=== PATIENT | male | born 1985 | race Caucasian/White ===

== ENCOUNTER 2019-12-20 14:02 | Emergency (ER) | payer BC, SELFPAY ==
[2019-12-20 14:10] VITALS: BP 136/51; PULSE 86; RESP 18; TEMP 36.6; O2SAT 98; BMI 27.8
--- NOTE | 2019-12-20 14:25 | HMH.EDUTC ---
[facility] [place] Disposition Clinical Impression: Sinusitis Qualifiers: Sinusitis location: unspecified location Chronicity: acute Recurrence: non-recurrent Qualified Code(s): J01.90 - Acute sinusitis, unspecified Otitis media Qualifiers: Otitis media type: suppurative Chronicity: acute Laterality: bilateral Recurrence: non-recurrent Spontaneous tympanic membrane rupture: without spontaneous rupture Qualified Code(s): H66.003 - Acute suppurative otitis media without spontaneous rupture of ear drum, bilateral Disposition: Home, Self-Care Condition on Discharge: Good Instructions: Sinusitis, DI for Sinusitis Additional Instructions: Drink plenty of fluids. Take tylenol or ibuprofen for pain or fever. Take the medications as directed. Follow up with your regular doctor. GO TO THE ER FOR ANY WORSENING SYMPTOMS FOLLOW THE DIRECTIONS ON THE COVID-19 HAND OUT THAT WE GAVE YOU REGARDING SELF-ISOLATION UNTIL YOU KNOW YOUR COVID-19 RESULTS Prescriptions: Brompheniramine/Pseudoephed/Dm [Bromfed Dm Cough Syrup] 5 ml PO Q6HP PRN #240 syrup PRN Reason: Cough Transmission Status: Received by [id number] Ondansetron [Zofran 4mg ODT] 4 mg PO Q8HP PRN #10 tab.rapdis PRN Reason: Nausea Transmission Status: Received by [id number] Azithromycin [Z-Adrian 250mg Tab*] 250 mg PO UD DOSE PK #6 tab Transmission Status: Received by [id number] Referrals: Yanet Gutierrez PA [Primary Care Provider] - Forms: Work/School Release Time of Disposition: 14:42 Medical Decision Making - Medical Records Medical records reviewed: No: I reviewed the patient's medical records. - Felipe Inquiry Pt receiving controlled substance: No Vital Signs: 12/20/19 14:10 12/20/19 14:46 Temperature 97.9 F 97.9 F Temperature Source Oral Oral Pulse Rate 86 Pulse Rate [Radial] 86 Respiratory Rate 18 18 Blood Pressure 136/51 L Blood Pressure [Right Arm] 136/51 L Blood Pressure Mean [Right Arm] 79 Blood Pressure Source Automatic Cuff Blood Pressure Source [Right Arm] Automatic Cuff Blood Pressure Position Sitting Blood Pressure Position [Right Arm] Sitting 02 Sat by Pulse Oximetry 98 Oxygen Delivery Method Room Air Room Air Orders (Tests/Meds): ORDERS Category Date Time Status Covid-19 Nasal PCR Sendout [facility] Routine Lab 12/20/19 14:09 Received [facility] [place] HPI - General Stated complaint: covid symptoms Time Seen by Provider: 12/20/19 14:25 Mode of Arrival: Ambulatory Source of Information: Patient Limitations: No Limitations Description of Symptoms (Recalled from Triage Doc. by RN): sent from the [facility] for a covid test related to having symptoms. N/V/D, chills, cough, body aches HEENT Symptoms (Recalled from RN notes): Yes Resp Symptoms (Recalled from RN notes): No Skin Symptoms (Recalled from RN notes): No MS Symptoms (Recalled from RN notes): No Functional Status (Recalled from RN notes): wnl - History of Present Illness Provider Complaint: He states that for the past 2 days he has been having nasal congestion, ear pain, body aches, a dry cough and feeling bad. He has had n/v, but no diarrhea. He denies any known contact with someone with COVID-19. - Related Data Home Medications Medication Instructions Recorded Confirmed metoprolol succinate 50 mg 50 mg PO DAILY 01/06/19 05/17/19 tablet,extended release 24 hr sertraline 25 mg tablet 25 mg PO DAILY 01/06/19 05/17/19 Previous Rx's Medication Instructions Recorded amoxicillin 500 mg capsule 500 mg PO Q12H 10 Days #20 cap 05/17/19 Azithromycin [Z-Adrian 250mg Tab*] 250 mg PO UD DOSE PK #6 tab 12/20/19 Brompheniramine/Pseudoephed/Dm 5 ml PO Q6HP PRN #240 syrup 12/20/19 [Bromfed Dm Cough Syrup] Ondansetron [Zofran 4mg ODT] 4 mg PO Q8HP PRN #10 tab.rapdis 12/20/19 Allergies Allergy/AdvReac Type Severity Reaction Status Date / Time No Known Allergies Allergy Verified 05/17/19 10:30 - Worker's Comp Is
[2019-12-20 14:46] VITALS: BP 136/51; PULSE 86; RESP 18; TEMP 36.6; O2SAT 98
[2019-12-21 13:32] LABS: Covid-19 Nasal PCR Sendout Lex Positive
== END 2019-12-20 14:52 | disposition home or self-care (01) ==
PROVIDERS: Emergency Provider Nurse Practitioner Family; PCP Nurse Practitioner Family
DX: U07.1 COVID-19 (principal); H66.003 Acute suppurative otitis media without spontaneous rupture of ear drum, bilateral; J01.90 Acute sinusitis, unspecified; F41.8 Other specified anxiety disorders; I48.20 Chronic atrial fibrillation, unspecified; Z79.899 Other long term (current) drug therapy
CPT/HCPCS: 99201; U0004

== ENCOUNTER 2022-01-30 09:57 | Emergency (ER) | payer BC, SELFPAY ==
[2022-01-30 11:25] VITALS: BP 131/86; PULSE 89; RESP 18; TEMP 36.6; O2SAT 98; BMI 33.4
--- NOTE | 2022-01-30 11:36 | EXP.UTC ---
Discharge Plan Disposition Patient Disposition: Home, Self-Care Condition: Good Prescriptions Prescriptions: New benzonatate 100 mg capsule 100 mg PO TID PRN (Reason: cough) Qty: 30 0RF methylprednisolone [Medrol (Adrian)] 4 mg tablets,dose pack See Rx Instructions .Route .COMPLEX 6 Days Qty: 21 0RF Rx Instructions: taper pack; amoxicillin-pot clavulanate 875-125 mg Tablet 1 tab PO Q12H Qty: 20 0RF No Action metoprolol succinate 50 mg tablet extended release 24 hr 50 mg PO DAILY Referrals Follow up/Referrals: Provider,Referral, MD [Primary Care Provider] - See instructions Activity Restrictions/Add. Instructions Additional Instructions/Restrictions: *Monitor Temp, Over the counter Motrin or Tylenol as directed/as needed Tylenol every 4 hours and Motrin every 6 hours (as long as your family doctor has told you that you can take it) for fever or pain. and straight to ER if unable to lower temp less than 101.0 after medication given *Warm salt water gargles may help to soothe the throat *Throat Lozenges? *Warm fluids like tea with honey may help to soothe the throat? *Sleep elevated *Humidifier/Vaporizer *Flonase 2 sprays in each nostril daily but be aware that it may take 2-3 days before you notice improvement *Bromfed may cause drowsiness. Know how it effects you (your child) before driving, caring for small child, or sending your child to school. Not other antihistamines/allergy medications while taking bromfed Your throat swab was sent for culture. Those results are typically sent to your primary care. Be sure to follow up in 2-3 days with your family doctor/primary care physician if no improvement so they can review those result and treat if necessary. If you don?t have a primary care doctor, I recommend you get one but in the mean time, you will have to return to a walk in clinic Follow up IMMEDIATELY for new or worsening symptoms or no Noticeable improvement over the next 48-72 hours. 911 for difficulty breathing or swallowing Clinical Impressions Clinical Impression: Otitis media Stand Alone Forms Stand Alone Forms: Work/School Release Instructions Patient Instructions: DI for Sinusitis, Middle Ear Infection Discharge ED Provider: Rosa Kmainski [facility] HPI General Stated complaint: wheezing, cough, congestion, sore throat Time Seen by Provider: 01/30/22 11:36 History of Present Illness Provider Complaint: Patient states that he thinks he may have an URI States that he has been having sinus pain and pressure, drainage in the back of his throat, cough, pain and pressure in both ears and headache States that today he was still feeling ill so he came in to get checked out Related Data Home Medications Medication Instructions Recorded Confirmed metoprolol succinate 50 mg 50 mg PO DAILY AFIB 01/06/19 01/30/22 tablet,extended release 24 hr Previous Rx's Medication Instructions Recorded amoxicillin 875 mg-potassium 1 tab PO Q12H #20 tabs 01/30/22 clavulanate 125 mg tablet benzonatate 100 mg capsule 100 mg PO TID PRN cough #30 caps 01/30/22 methylprednisolone 4 mg tablets in See Rx Instructions .Route 01/30/22 a dose pack (Medrol (Adrian)) .COMPLEX 6 days #21 tabs Allergies Allergy/AdvReac Type Severity Reaction Status Date / Time No Known Allergies Allergy Verified 05/17/19 10:30 [facility] Medical History (Updated 01/30/22 @ 11:43 by Rosa Kaminski, ENGINEERING ANALYST) Atrial fibrillation History of deviated nasal septum Surgical History (Updated 01/30/22 @ 11:40 by No Morales RN) History of carpal tunnel surgery Social History Smoking Status: Never smoker alcohol intake: never substance use type: denies use current occupational status: employed Travel in the last 8 weeks: None ROS Obtained: Yes All systems reviewed & no additional complaints except as documented and Yes Systems reviewed as appropriate & no add
[2022-01-30 11:44] VITALS: BP 131/86; PULSE 89; RESP 18; TEMP 36.6; O2SAT 98
== END 2022-01-30 11:47 | disposition home or self-care (01) ==
PROVIDERS: Emergency Provider Nurse Practitioner
DX: H66.92 Otitis media, unspecified, left ear (principal)
CPT/HCPCS: 99212; G0463

== ENCOUNTER 2022-02-13 10:15 | Emergency (ER) | payer BC, SELFPAY ==
--- NOTE | 2022-02-13 10:32 | EXP.UTC ---
Discharge Plan Disposition Patient Disposition: Home, Self-Care Condition: Good Prescriptions Prescriptions: New azithromycin [Zithromax] 250 mg tablet 250 mg PO UD DOSE PK Qty: 6 0RF Rx Instructions: Take two (2) tablets today, then one (1) tablet days #2 thru #5 benzonatate [benzonatate] 100 mg capsule 100 mg PO TIDP PRN (Reason: Cough) Qty: 30 0RF oseltamivir [Tamiflu] 75 mg capsule 75 mg PO BID Qty: 10 0RF ondansetron 4 mg Tablet,Disintegrating 4 mg PO Q8H PRN (Reason: Nausea) Qty: 12 0RF No Action metoprolol succinate 50 mg tablet extended release 24 hr 50 mg PO DAILY benzonatate 100 mg capsule 100 mg PO TID PRN (Reason: cough) Qty: 30 0RF methylprednisolone [Medrol (Adrian)] 4 mg tablets,dose pack See Rx Instructions .Route .COMPLEX 6 Days Qty: 21 0RF Rx Instructions: taper pack; amoxicillin 875 mg tablet 875 mg PO Q12H Qty: 20 0RF Referrals Follow up/Referrals: Provider,Referral, MD [Primary Care Provider] - See instructions Activity Restrictions/Add. Instructions Additional Instructions/Restrictions: Drink plenty of fluids. Take tylenol or ibuprofen for pain or fever. Take the medications as directed. Follow up with your regular doctor. GO TO THE ER FOR ANY WORSENING SYMPTOMS Clinical Impressions Clinical Impression: Influenza, Pharyngitis Stand Alone Forms Stand Alone Forms: Work/School Release Instructions Patient Instructions: DI for Influenza -- Adult, Oseltamivir Discharge ED Provider: Rosendo Olsen [facility] General Stated complaint: fever, sore throat, congestion, chills, body aches Time Seen by Provider: 02/13/22 10:32 History of Present Illness Provider Complaint: He states that for the past 1 day he has had fever, chills, diarrhea, body aches, sore throat and malaise. Related Data Home Medications Medication Instructions Recorded Confirmed metoprolol succinate 50 mg 50 mg PO DAILY AFIB 01/06/19 01/30/22 tablet,extended release 24 hr Previous Rx's Medication Instructions Recorded amoxicillin 875 mg tablet 875 mg PO Q12H #20 tabs 01/30/22 benzonatate 100 mg capsule 100 mg PO TID PRN cough #30 caps 01/30/22 methylprednisolone 4 mg tablets in See Rx Instructions .Route 01/30/22 a dose pack (Medrol (Adrian)) .COMPLEX 6 days #21 tabs azithromycin 250 mg tablet 250 mg PO UD DOSE PK #6 tabs 02/13/22 (Zithromax) benzonatate 100 mg capsule 100 mg PO TIDP PRN Cough #30 caps 02/13/22 ondansetron 4 mg disintegrating 4 mg PO Q8H PRN Nausea #12 tabs 02/13/22 tablet oseltamivir 75 mg capsule (Tamiflu) 75 mg PO BID #10 caps 02/13/22 Allergies Allergy/AdvReac Type Severity Reaction Status Date / Time No Known Allergies Allergy Verified 02/13/22 10:50 [facility] Disclaimer: The information contained in this section may have been updated after the patient was seen, as this information can be updated by other users. Medical History Atrial fibrillation History of deviated nasal septum Surgical History History of carpal tunnel surgery Social History Smoking Status: Never smoker alcohol intake: never substance use type: denies use current occupational status: employed Travel in the last 8 weeks: None ROS Obtained: Yes All systems reviewed & no additional complaints except as documented Constitutional Constitutional: Reports chills and Reports fever(s) Eyes Eyes: Denies eye discharge ENT Ears, Nose, Mouth, and Throat: Reports as per HPI Cardiovascular Cardiovascular: Denies chest pain Respiratory Respiratory: Denies chest congestion and Reports cough Gastrointestinal Gastrointestingal: Reports nausea; Denies abdominal pain, constipation, cramping, diarrhea or vomiting Musculoskeletal Musculoskeletal: Denies arthralgias Integumentar
[2022-02-13 10:47] VITALS: BP 133/80; PULSE 73; RESP 18; TEMP 37.2; O2SAT 95; BMI 29.2
[2022-02-13 10:51] LABS: UTC Strep Screen (Rapid) Negative (Negative)
[2022-02-13 10:54] LABS: Coronavirus 19, PCR Not Detected (NotDetected); Influenza A, PCR Not Detected (NotDetected); Influenza B, PCR Not Detected (NotDetected)
[2022-02-13 11:47] VITALS: BP 133/80; PULSE 73; RESP 18; TEMP 37.2
== END 2022-02-13 11:52 | disposition home or self-care (01) ==
PROVIDERS: Emergency Provider Nurse Practitioner Family
DX: J02.9 Acute pharyngitis, unspecified (principal); R50.9 Fever, unspecified; R52 Pain, unspecified
CPT/HCPCS: 87880; 99212; C9803; G0463; U0003; U0005

== ENCOUNTER 2022-05-12 13:03 | Emergency (ER) | payer BC, SELFPAY ==
[2022-05-12 15:00] VITALS: BP 133/92; PULSE 79; RESP 20; TEMP 36.6; O2SAT 99; BMI 29.8
--- NOTE | 2022-05-12 15:09 | EXP.UTC ---
Discharge Plan Disposition Patient Disposition: Home, Self-Care Condition: Good Prescriptions Prescriptions: New methylprednisolone 4 mg Tablets,Dose Pack 4 mg PO DIRECTED Qty: 21 0RF amoxicillin-pot clavulanate 875-125 mg Tablet 1 tab PO Q12H Qty: 20 0RF No Action metoprolol succinate 50 mg tablet extended release 24 hr 50 mg PO DAILY Referrals Follow up/Referrals: Provider,Referral, MD [Primary Care Provider] - See instructions Activity Restrictions/Add. Instructions Additional Instructions/Restrictions: Drink plenty of fluids. Take tylenol or ibuprofen for pain or fever. Take the medications as directed. Follow up with your regular doctor. GO TO THE ER FOR ANY WORSENING SYMPTOMS Clinical Impressions Clinical Impression: Pharyngitis Stand Alone Forms Stand Alone Forms: Work/School Release Instructions Patient Instructions: DI for Pharyngitis/Tonsillopharyngitis -- Adult Discharge ED Provider[place] [facility] [place] General Stated complaint: sore throat Time Seen by Provider: 05/12/22 15:08 History of Present Illness Provider Complaint: He c/o sore throat, chills, and malaise for the past 2 days Related Data Home Medications Medication Instructions Recorded Confirmed metoprolol succinate 50 mg 50 mg PO DAILY AFIB 01/06/19 05/12/22 tablet,extended release 24 hr Previous Rx's Medication Instructions Recorded amoxicillin 875 mg-potassium 1 tab PO Q12H #20 tabs 05/12/22 clavulanate 125 mg tablet methylprednisolone 4 mg tablets in 4 mg PO DIRECTED #21 tabs 05/12/22 a dose pack Allergies Allergy/AdvReac Type Severity Reaction Status Date / Time No Known Allergies Allergy Verified 05/12/22 15:24 [facility] Disclaimer: The information contained in this section may have been updated after the patient was seen, as this information can be updated by other users. Medical History Atrial fibrillation History of deviated nasal septum Surgical History History of carpal tunnel surgery Social History Smoking Status: Never smoker alcohol intake: never substance use type: denies use current occupational status: employed Travel in the last 8 weeks: None ROS Obtained: Yes All systems reviewed & no additional complaints except as documented Constitutional Constitutional: Reports chills and Reports fever(s) Eyes Eyes: Denies eye discharge ENT Ears, Nose, Mouth, and Throat: Reports as per HPI Cardiovascular Cardiovascular: Denies chest pain Respiratory Respiratory: Denies chest congestion and Reports cough Gastrointestinal Gastrointestingal: Reports nausea; Denies abdominal pain, constipation, cramping, diarrhea or vomiting Musculoskeletal Musculoskeletal: Denies arthralgias Integumentary/Breasts Skin/Breast: Denies rash Neurologic Neurologic: Denies paresthesias Physical Exam General General appearance: alert and in no apparent distress Head Head exam: atraumatic, normocephalic and normal inspection Eye Eye exam: Present normal appearance, PERRL and EOMI ENT ENT exam: Present mucous membranes moist and normal external ear exam Expanded ENT Exam TM/Canal exam: Bilateral TM: erythema and bulging Nose exam: Absent sinus tenderness Mouth exam: Present normal external inspection; Absent drooling Teeth exam: Present normal inspection Throat exam: Present tonsillar erythema, tonsillomegaly and tonsillar exudate Neck Neck exam: Present normal inspection, full ROM and trachea midline; Absent tenderness, meningismus or lymphadenopathy Chest Chest inspection: Present normal inspection and symmetric chest wall rise; Absent tenderness Respiratory Respiratory exam: Present normal lung sounds bilaterally; Absent respiratory distress, wheezes or stridor Cardiovascular Cardiovascular e
[2022-05-12 15:16] LABS: UTC Strep Screen (Rapid) Negative (Negative)
[2022-05-12 15:49] VITALS: BP 133/92; PULSE 79; RESP 20; TEMP 36.6; O2SAT 99
== END 2022-05-12 15:48 | disposition home or self-care (01) ==
PROVIDERS: Emergency Provider Nurse Practitioner Family
DX: J02.9 Acute pharyngitis, unspecified (principal); R53.81 Other malaise
CPT/HCPCS: 87880; 99212; 99214; G0463

== ENCOUNTER 2022-08-13 17:49 | Emergency (ER) | payer BC, SELFPAY ==
[2022-08-13 17:50] VITALS: BP 128/79; PULSE 93; RESP 18; TEMP 37; O2SAT 96; BMI 30.2
[2022-08-13 18:13] LABS: UTC Strep Screen (Rapid) Negative (Negative)
--- NOTE | 2022-08-13 18:14 | EXP.UTC ---
Discharge Plan Disposition Patient Disposition: Home, Self-Care Condition: Good Prescriptions Prescriptions: New methylprednisolone 4 mg Tablets,Dose Pack 4 mg PO DIRECTED Qty: 21 0RF amoxicillin-pot clavulanate 875-125 mg Tablet 1 tab PO Q12H Qty: 20 0RF meclizine 25 mg tablet 25 mg PO Q6HP PRN (Reason: dizziness) Qty: 30 0RF No Action metoprolol succinate 50 mg tablet extended release 24 hr 50 mg PO DAILY methylprednisolone 4 mg Tablets,Dose Pack 4 mg PO DIRECTED Qty: 21 0RF amoxicillin-pot clavulanate 875-125 mg Tablet 1 tab PO Q12H Qty: 20 0RF Referrals Follow up/Referrals: Provider,Referral, MD [Primary Care Provider] - See instructions Activity Restrictions/Add. Instructions Additional Instructions/Restrictions: Drink plenty of fluids. Take tylenol or ibuprofen for pain or fever. Take the medications as directed. Follow up with your regular doctor. GO TO THE ER FOR ANY WORSENING SYMPTOMS The meclizine (antivert) is for your dizziness. It will make you drowsy, so don't drive or operate heavy machinery after taking it. Clinical Impressions Clinical Impression: Otitis media, Pharyngitis Stand Alone Forms Stand Alone Forms: Work/School Release Instructions Patient Instructions: Middle Ear Infection, DI for Vertigo Discharge ED Provider: Rosendo Olsen [facility] General Stated complaint: dizzy Mode of Arrival: Ambulatory Source of Information: Patient Limitations: No Limitations Time Seen by Provider: 08/13/22 18:11 Description of Symptoms (Recalled from Triage Doc. by RN): Patient reports a sore throat, chills, ear ache, headache and dizziness since yesterday. HEENT Symptoms (Recalled from RN notes): Yes Resp Symptoms (Recalled from RN notes): No Skin Symptoms (Recalled from RN notes): No MS Symptoms (Recalled from RN notes): No Functional Status (Recalled from RN notes): wnl History of Present Illness Provider Complaint: He reports that since yesterday he has had left ear pain, dizziness, sore throat and he has felt bad. Related Data Home Medications Medication Instructions Recorded Confirmed metoprolol succinate 50 mg 50 mg PO DAILY AFIB 01/06/19 05/12/22 tablet,extended release 24 hr Previous Rx's Medication Instructions Recorded amoxicillin 875 mg-potassium 1 tab PO Q12H #20 tabs 05/12/22 clavulanate 125 mg tablet methylprednisolone 4 mg tablets in 4 mg PO DIRECTED #21 tabs 05/12/22 a dose pack amoxicillin 875 mg-potassium 1 tab PO Q12H #20 tabs 08/13/22 clavulanate 125 mg tablet meclizine 25 mg tablet 25 mg PO Q6HP PRN dizziness #30 08/13/22 tabs methylprednisolone 4 mg tablets in 4 mg PO DIRECTED #21 tabs 08/13/22 a dose pack Allergies Allergy/AdvReac Type Severity Reaction Status Date / Time No Known Allergies Allergy Verified 05/12/22 15:24 Worker's Comp Is this a Worker's Comp case?: No [facility] Disclaimer: The information contained in this section may have been updated after the patient was seen, as this information can be updated by other users. Medical History Atrial fibrillation History of deviated nasal septum Surgical History History of carpal tunnel surgery Social History Smoking Status: Never smoker alcohol intake: never substance use type: denies use current occupational status: employed Travel in the last 8 weeks: None ROS Obtained: Yes All systems reviewed & no additional complaints except as documented Constitutional Constitutional: Reports chills and Reports fever(s) Eyes Eyes: Denies eye discharge ENT Ears, Nose, Mouth, and Throat: Reports as per HPI Cardiovascular Cardiovascular: Denies chest pain Respiratory Respiratory: Denies chest congestion and Reports cough Gastrointestinal Gastrointes
[2022-08-13 18:20] VITALS: BP 128/79; PULSE 93; RESP 18; TEMP 37; O2SAT 96
== END 2022-08-13 18:21 | disposition home or self-care (01) ==
PROVIDERS: Emergency Provider Nurse Practitioner Family
DX: H66.93 Otitis media, unspecified, bilateral (principal); J02.9 Acute pharyngitis, unspecified; R42 Dizziness and giddiness
CPT/HCPCS: 87880; 99212; 99214; G0463

== ENCOUNTER 2024-02-11 15:04 | Outpatient (CLI) | payer BC, SELFPAY | END 2024-02-11 23:59 | disposition home or self-care (01) | LOC: LAB.DROPOF 02-12 08:54 | PROVIDERS: PCP Nurse Practitioner Family; Visit Provider Nurse Practitioner Family | DX: J02.9 Acute pharyngitis, unspecified (principal) | CPT/HCPCS: 87070 ==

== ENCOUNTER 2024-02-16 23:01 | Emergency (ER) | payer BC, SELFPAY ==
[2024-02-16 23:02] VITALS: BP 134/89; PULSE 94; RESP 18; TEMP 36.7; O2SAT 96; BMI 29.8
--- NOTE | 2024-02-16 23:18 | HMH.EDGENADL ---
Discharge Plan Disposition Patient Disposition: Home, Self-Care Prescriptions Prescriptions: No Action metoprolol succinate 50 mg tablet extended release 24 hr 50 mg PO DAILY promethazine-DM 6.25-15 mg/5 mL syrup 5 ml PO Q4-6H PRN (Reason: cough) Qty: 118 0RF Referrals Follow up/Referrals: Provider,Referral, MD [Primary Care Provider] - See instructions Activity Restrictions/Add. Instructions Additional Instructions/Restrictions: Please use erythromycin ointment as discussed 4 times per day as discussed. Please call to follow-up with an eye doctor soon as possible. Please return to the ER if you develop any new or worsening symptoms or become concerned for your health. Clinical Impressions Clinical Impression: Corneal abrasion, Acid chemical burn of left eye Stand Alone Forms Stand Alone Forms: Work/School Release Print Language Print Language: Brazilian Discharge ED Provider: Matthew Ramos General Adult HPI General Chief complaint: Eye Problems Stated complaint: eye injury Time Seen by Provider: 02/16/24 23:05 History of Present Illness HPI narrative: 38-year-old male without significant past medical history presents for possible acid exposure to the left eye. 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 He immediately started washing it out at home. He reported felt a little bit irritated after washing it out. He then proceeded to the ER. Denies any injury to the right eye. Does not wear contacts. Related Data Home Medications ?Medication ?Instructions ?Recorded ?Confirmed metoprolol succinate 50 mg 50 mg PO DAILY AFIB 01/06/19 02/11/24 tablet,extended release 24 hr Previous Rx's ?Medication ?Instructions ?Recorded promethazine-DM 6.25 mg-15 mg/5 mL 5 ml PO Q4-6H PRN cough #118 mL 02/11/24 oral syrup Allergies Allergy/AdvReac Type Severity Reaction Status Date / Time No Known Allergies Allergy Verified 02/11/24 14:56 [facility] Disclaimer: The information contained in this section may have been updated after the patient was seen, as this information can be updated by other users. Medical History Sinusitis Otitis media Influenza Pharyngitis History of deviated nasal septum Atrial fibrillation Surgical History History of carpal tunnel surgery Family History Other No significant family history Social History Smoking Status: Never smoker alcohol intake: never substance use type: denies use current occupational status: employed Travel in the last 8 weeks: None Other Medical History Have you received the Pneumonia Vaccine: No ROS Obtained: Yes All systems reviewed & no additional complaints except as documented Physical Exam General General appearance: alert and in no apparent distress Head Head exam: atraumatic and normocephalic Eye Eye exam: Present PERRL, EOMI and conjunctival injection ENT ENT exam: Present normal oropharynx and normal external ear exam Neck Neck exam: Present normal inspection and full ROM Chest Chest inspection: Present normal inspection and symmetric chest wall rise; Absent tenderness Respiratory Respiratory exam: Present normal lung sounds bilaterally; Absent respiratory distress Cardiovascular Cardiovascular exam: Present regular rate and normal rhythm Abdominal Exam Abdominal exam: Present soft; Absent distention, tenderness or guarding Extremities Exam Extremities exam: Present normal inspection; Absent edema or joint swelling Back Exam Back exam: Present normal inspection; Absent tenderness Neurological Exam Neurological exam: Present alert and oriented X3; Absent motor sensory deficit Psychiatric Psychiatric exam: Present normal affect and normal mood Skin Skin exam: Present warm, dry and normal color Lymphatic Lymphatic Findings: no adenopathy Medical Decision Making Medical Records Medical records reviewed: Yes I reviewed the patient's medical records. Screening: Per USPSTF and CDC recommendations, given the prevalence of disease in our region, it is our hospital?s policy to screen for HIV and viral Hepatitis for all patients aged 18 and over and those with ongoing risk factors. Felipe Inquiry Pt receiving controlled substance: No Felipe was queried for this patient: No Vital Signs: 02/16/24 23:02 02/16/24 23:44 Temperature 98.1 F 98.1 F Temperature Source Oral Oral Pulse Rate 94 H Pulse Rate [Right] 94 H Respiratory Rate 18 18 Blood Pressure 134/89 Blood Pressure [Right Arm] 134/89 Blood Pressure Mean [Right Arm] 104 02 Sat by Pulse Oximetry 96 Oxygen Delivery Method Room Air Lab Data Lab results reviewed: Yes I reviewed the patient's lab results. Orders (Tests/Meds): ED MEDICATIONS Discontinued Medications Generic Name Dose Route Start Last Admin Trade Name Ramona PRN Reason Stop Dose Admin Erythromycin 0.5 gm 02/16/24 23:40 02/16/24 23:42 Erythromycin Base 1 Gm Oint...G. 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 He washed out immediately at home and then came to the ER. Differential diagnosis includes but limited to acid exposure, corneal ulcer, corneal abrasion. We immediately began irrigating the eye with our eyewash station. Patient had 25 minutes of irrigation. After irrigation patient reports that his affected eye is more blurry than before irrigation. pH test shows normal and equal pH bilaterally. Patient was given tetracaine, on fluorescein staining there is a small area of fluorescein uptake at the 11 o'clock position overlying the lateral aspect of the iris and some of the sclera. Patient was given erythromycin ointment and instructed on its use and to follow-up with an eye doctor soon as possible. Patient was discharged in stable condition with return precautions. Procedures Risk/Benefits of Procedure(s) Were Explained: Yes Critical Care Critical Care Time Critical Care Time: No
[2024-02-16] MEDS: ERYTHROMYCIN BASE 1 GM OINT...G. 0.5 GM OP (23:42)
[2024-02-16] MEDS: FLUORESCEIN SODIUM 1MG STRIP 1 MG OP (23:43)
[2024-02-16] MEDS: TETRACAINE 0.5% OPTH SOL 15ML OP (23:43)
[2024-02-16 23:44] VITALS: BP 134/89; PULSE 94; RESP 18; TEMP 36.7; O2SAT 96
== END 2024-02-16 23:54 | disposition home or self-care (01) ==
PROVIDERS: Emergency Provider Emergency Medicine
DX: S05.02XA Injury of conjunctiva and corneal abrasion without foreign body, left eye, initial encounter (principal); T54.2X1A Toxic effect of corrosive acids and acid-like substances, accidental (unintentional), initial encounter; H57.12 Ocular pain, left eye
CPT/HCPCS: 99283

== ENCOUNTER 2025-01-03 12:03 | Outpatient (CLI) | payer BC, SELFPAY ==
[2025-01-03 15:35] LABS: Coronavirus 19, PCR Not Detected (NotDetected); Influenza A, PCR Not Detected (NotDetected); Influenza B, PCR Not Detected (NotDetected)
--- OUTSIDE RECORDS SUMMARY | 2025-01-05 20:51 | XMS_ITS | Clinical Summary ---
Author Organization [facility] Address [address] [facility] [address] [place] [address] Care Team Providers Care High Wire Artist Name Role Phone Unavailable Primary Care Provider Unavailabl e Social History Tobacco Use Types Packs/Day Years Used Date Smoking Tobacco: Never Assessed Sex and Gender Information Value Date Recorded Sex Assigned at Not on file Legal Sex Male 4:58 PM EST Gender Identity Not on file Sexual Orientation Not on file Plan of Treatment Health Maintenance Due Date Last Done Comments HIV Screening 1987 Hepatitis C Screening 1987 Lipid Panel 1987 MMR Vaccines (1 of 1 - Stand monroe series) 08/04/1988 Varicella Vaccines (1 of 2 - 13+ 2-dose series) 08/04/2000 Hepatitis B Screening 08/04/2005 DTaP/Tdap/Td Vaccines (1 - Tdap) 08/04/2006 Hepatitis B Vaccines (1 of 3 - 19+ 3-dose series) 08/04/2006 HPV Vaccines (1 - 3-dose SCD M series) 08/04/2014 Depression Risk Screening 03/03/2024 SDOH Screening 03/03/2024 COVID-19 Vaccine (1 - 2024-2 6 season) 2024 Influenza Vaccine (#1) 2024 Zoster Vaccines (1 of 2) 08/04/2037 HIB Vaccines Aged Out No longer eligi ble based on patient's age to complete this topic Hepatitis A Vaccines Aged Out No long er eligible based on patient's age to complete this topic IPV Vaccines Aged Out No longer eligi ble based on patient's age to complete this topic Meningococcal B Vaccine Aged Out No l onger eligible based on patient's age to complete this topic Meningococcal Vaccine Aged Out No treasure deirdre eligible based on patient's age to complete this topic Pneumococcal Vaccine Aged Out No long er eligible based on patient's age to complete this topic Rotavirus Vaccines Aged Out No longer eligible based on patient's age to complete this topic Insurance JUSTIN
--- OUTSIDE RECORDS SUMMARY | 2025-01-05 20:52 | XMS_ITS | Clinical Summary ---
Author Organization [facility] Address [address] [place] [id number] Phone [email or web address] Care Team Providers Care Heel Blacker Name Role Phone Corona Cruz Primary Care Provider Unavailabl e Allergies No known active allergies Medications metoprolol tartrate (LOPRESSOR) 50 MG tablet Take 50 mg by mouth daily. Active tobramycin-dexa methasone (TOBRADEX) ophthalmic solution INSTILL 1 DROP INTO LEFT EYE 4 TIMES DAILY FOR 7 DAYS 02/17/2024 Active promethazine-de xtromethorphan (PROMETHAZINE-D M) 6.25-15 MG/5ML syrup 02/11/2024 Active Active Problems Problem Noted Date Diagnosed Date Contusion of left ring finger without damage to nail 01/12/2019 Contusion of part of lower limb 04/17/2010 Overview (07/30/2017): Social History Tobacco Use Types Packs/Day Years Used Date Smoking Tobacco: Never Smokeless Tobacco: Current Chew Alcohol Use Standard Drinks/Week Comments Yes 0 (1 standard drink = 0.6 oz pur e alcohol) Intimate Partner Violence Answer Date R ecorded Insults You Not on file 06/14/2020 Threatens You Not on file 06/14/2020 Screams at You Not on file 06/14/2020 Physically Hurt Not on file 06/14/2020 Intimate Partner Violence Score Not on file 06/14/2020 Alcohol Use Answer Date Recorded Alcohol Use Status Yes 03/03/2023 Depression Answer Date Recorded PHQ Total Score Not on file 11/20/2021 Stress Answer Date Recorded Stress in your Life Not on file 01/05/2024 Dealing with Stress 3 01/05/2024 Sex and Gender Information Value Date Recorded Sex Assigned at Not on file Legal Sex Male 12:18 PM CDT Gender Identity Not on file Sexual Orientation Not on file Last Filed Vital Signs Vital Sign Reading Time Taken Comments Blood Pressure 135/90 03/04/2024 6:17 AM EST Pulse 93 03/04/2024 6:17 AM EST Temperature 36.6 C (97.9 F) 03/04/2024 6:17 AM EST Respiratory Rate 16 03/04/2024 6:17 AM EST Oxygen Saturation 96% 03/04/2024 6:17 AM EST Inhaled Oxygen Concentration - - Weight 84.4 kg (186 lb) 01/12/2019 7:42 PM EST Height 182.9 cm (6') 01/12/2019 7:42 PM EST Body Mass Index 25.23 01/12/2019 7:42 PM EST Plan of Treatment Health Maintenance Due Date Last Done Comments Dental Cleaning/Exam 1987 HIV Screening 1987 Hepatitis C Screening 1987 HPV Immunization (1 - Male 3-dose series) 08/04/2002 Annual Preventive Exam 08/04/2005 Hep B Infection Screening - Triple Screen 08/04/2005 Hepatitis B Immunization (1 of 3 - 19+ 3-dose series) 08/04/2006 Tetanus Diphtheria and Pertussis Immunization (1 - Tdap) 08/04/2006 Covid-19 Immunization (3 - season) 2024 11/10/2020, 10/19/2020 Influenza Immunization (#1) 2024 HIB Immunization Aged Out No longer e ligible based on patient's age to complete this topic Hepatitis A Immunization Aged Out No longer eligible based on patient's age to complete this topic Pneumococcal Immunization Aged Out No longer eligible based on patient's age to complete this topic Polio Immunization Aged Out No longer eligible based on patient's age to complete this topic Varicella Immunization Aged Out No lo nger eligible based on patient's age to complete this topic Insurance [id number] [place] [address] Care Teams Heel Blacker Relationship Specialty Start Date End Date Corona Cruz [place] PCP - General Internal Medicine 01/12/19
--- OUTSIDE RECORDS SUMMARY | 2025-01-05 20:52 | XMS_ITS | Clinical Summary ---
Author Organization [facility] Address [address] [place] [address] Care Team Providers Care Tents Assembler Name Role Phone Provider, No Known Primary Care Provider Unavail able Allergies No known active allergies Medications metoprolol succinate XL (TOPROL-XL) 50 MG 24 hr tabletIndicatio ns:Paroxysmal A-fib Take 1 tablet by mouth Daily. Patient needs appt for further refills. 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 He completed an echocardiogram today that revealed an LVEF of 61 to 65%, normal diastolic function, mildly dilated right ventricle and normal RVSP. Currently stable. Will continue to monitor with echocardiogram every 2-3 years. 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 Patient has not had an echocardiogram in several years. An echocardiogram was ordered at last office visit on 01/14/2023 but he had to cancel due to schedule conflicts. - Echocardiogram for further evaluation and management. 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 Patient has not had an echocardiogram in several years. - Echocardiogram for further evaluation and management. We we will continue to follow with annual echocardiograms. Laboratory exam ordered as p art of routine general medical examination 01/14/2023 Paroxysmal A-fib 01/14/2023 Assessment & Plan (03/01/2024 11:41 AM EST): Previous history of 1 episode of A-fib years ago and has not had a recurrence of that since. He feels like it was due to the excessive amount of energy drinks he was drinking at that time. There is no data confirming A-fib. He denies any palpitations or tachycardia. - Continue metoprolol at current dose. Assessment & Plan (02/23/2024 2:30 PM EST): He reports a previous history of 1 episode of A-fib years ago and has not had a recurrence of that since. He feels like it was due to the excessive amount of energy drinks he was drinking at that time. There is no data confirming A-fib. He denies any palpitations or tachycardia. - Continue metoprolol at current dose. Assessment & Plan (01/14/2023 4:13 PM EST): He reports a previous history of 1 episode of A-fib years ago and has not had a recurrence of that since. He feels like it was due to the excessive amount of energy drinks he was drinking at that time. There is no data confirming A-fib. He denies any palpitations or tachycardia. - Continue metoprolol at current dose. Family History Medical History Relation Name Comments No Known Problems Father Relation Name Status Comments Father Alive Mother Social History Tobacco Use Types Packs/Day Years Used Date Smoking Tobacco: Never Passive Smoke Exposure: Never Smokeless Tobacco: Current Chew Tobacco Cessation:Ready to Q uit: No; Counseling Given: No Alcohol Use Standard Drinks/Week Comments Yes 0 (1 standard drink = 0.6 oz pur e alcohol) Sex and Gender Information Value Date Recorded Sex Assigned at Not on file Legal Sex Male 9:27 AM EDT Gender Identity Not on file Sexual Orientation Not on file Last Filed Vital Signs Vital Sign Reading Time Taken Comments Blood Pressure 146/97 03/01/2024 11:21 AM EST Pulse 79 03/01/2024 11:19 AM EST Temperature - - Respiratory Rate - - Oxygen Saturation 98% 03/01/2024 11:19 AM EST Inhaled Oxygen Concentration - - Weight 103 kg (228 lb) 03/01/2024 11:21 AM EST Height 182.9 cm (6') 03/01/2024 11:21 AM EST Body Mass Index 30.92 03/01/2024 11:21 AM EST Plan of Treatment Upcoming Encounters Date Type Department Care Team (Late st Contact Info) Description 02/28/2025 11:30 AM EST Office Visit [facility] [address] [place] [address] Sherlyn Navarrete, [employer] [address] [place] [address] Health Maintenance Due Date Last Done Comments TDAP/TD VACCINES (1 - Tdap) 08/04/2006 ANNUAL PHYSICAL 04/05/2020 HEPATITIS C SCREENING 04/05/2020 PT PLAN OF CARE 04/20/2020 INFLUENZA VACCINE 10/01/2024 Pneumococcal Vaccine 0-49 Aged Out No longer eligible based on patient's age to complete this topic Insurance PPO Care Teams Tents Assembler Relationship Specialty Start Date End Date Provider, No Known [facility] [address] PCP - General 01/12/24
== END 2025-01-03 23:59 | disposition home or self-care (01) ==
LOC: LAB.DROPOF 01-05 20:49
PROVIDERS: Visit Provider Nurse Practitioner
DX: J98.8 Other specified respiratory disorders (principal); B97.89 Other viral agents as the cause of diseases classified elsewhere
CPT/HCPCS: 87631